=== PATIENT | female | born 1955 | race Caucasian/White ===

== ENCOUNTER 2017-06-02 21:08 | Emergency (ER) | END 2017-06-02 22:08 | disposition left against medical advice (07) ==

== ENCOUNTER 2019-01-02 07:55 | Emergency (ER) | payer OTHER ==
[~2019-01-02] VITALS: Ht 162.6 cm; Wt 80.0 kg
[2019-01-02 07:58] VITALS: Ht 162.6 cm; Wt 80.0 kg
--- NOTE | 2019-01-02 08:38 | ERD ---
ER Documentation Chief Complaint Chief Complaint Just got bad news about a in the family c/o anxiety like symptoms HPI This is a 63-year-old female with a past medical history of hypertension, diabetes, rectal cancer status post resection who is presenting to the emergency department after a reported hysterical episode. The patient got bad news this morning about a tragic unexpected of a family member. She was screaming and inconsolable. She endorsed a moderate aching chest pain. She was hyperventilating and endorsed palpitations. The patient could not be calmed down, and the family was afraid, so they called an ambulance. In route to the hospital, the patient's symptoms started to improve. The patient is still incredibly sad, but she is calm and cooperative currently. She does not endorse any alleviating or exacerbating factors. The patient's blood sugar was checked in route to the hospital and found to be at 160. The patient denies feeling sick recently. The patient denies fever or chills. The patient has had no headache or vision changes. The patient does not endorse neck or back pain. The patient denies lightheadedness or dizziness. The patient has had no chest pain or trouble breathing. The patient denies nausea or vomiting. The patient denies abdominal pain. The patient denies changes to bowel movements or urination. The patient has had no focal deficits. The patient has had no weakness or numbness or tingling to the face or extremities. ROS All systems reviewed and are negative except as per history of present illness. Allergies Allergies: Coded Allergies: No Known Allergy (Unverified , 01/02/19) PMhx/Soc History of Surgery: Yes (Rectal cancer resection) Anesthesia Reaction: No Hx Neurological Disorder: No Hx Respiratory Disorders: No Hx Cardiac Disorders: Yes (Hypertension, diabetes) Hx Psychiatric Problems: No Hx Miscellaneous Medical Probl: No Hx Alcohol Use: No Hx Substance Use: No Hx Tobacco Use: No FmHx Family History: diabetes Physical Exam Vitals Vital Signs Date Temp Pulse Resp B/P (MAP) Pulse Ox O2 O2 Flow FiO2 Time Delivery Rate 01/02/19 97.8 74 18 172/74 98 07:58 (106) Physical Exam Const: No acute distress Head: Atraumatic Eyes: Normal Conjunctiva ENT: Normal External Ears, Nose and Mouth. Neck: Full range of motion. No meningismus. Resp: Clear to auscultation bilaterally Cardio: Regular rate and rhythm, no murmurs Abd: Soft, non tender, non distended. Normal bowel sounds Skin: No petechiae or rashes Back: No midline or flank tenderness Ext: No cyanosis, or edema Neur: Awake and alert Psych: Patient expresses a grief and sadness. Otherwise normal mood and affect given the situation. Procedures/MDM MDM The patient's presentation warrants further investigation. Previous medical records, if available, were reviewed. EKG EKG read by me: Rate/Rhythm: Regular rate and rhythm at a rate of 70 Intervals: Normal [place]: Normal Impression: No evidence of acute ischemia or arrhythmia TREATMENT/DISPOSITION The patient's symptoms are consistent with an anxiety reaction and bereavement. The patient received news of a tragic unexpected this morning, and her symptoms were directly associated with this news. The patient has since calmed down, and her symptoms have improved. The patient's EKG is normal. I do not suspect acute coronary syndrome. I do not suspect an emergent cardiopulmonary process. Given the patient's current demeanor, I do not feel that she requires medical anxiolysis. The patient has family at home for support. I do not feel that a prescription is warranted at this time. The patient did not endorse any suicidal or homicidal ideations. She does not require any further psychiatric work-up. She is not a danger to herself or others. DISCHARGE Upon reevaluation of the patient, symptoms have improved. No emergent diagnoses were identified. At this time, I feel that the patient stable for discharge. The patient was instructed to follow-up with a primary care physician in 1-3 days. The patient will be given strict precautions with which to return to the emergency department. Prescriptions: None The patient's blood pressure was elevated at greater than 120/80 while in the emergency department. The patient was otherwise stable with no evidence of hypertensive urgency or emergency. The patient does not require admission for blood pressure control. I have discussed with the patient the risks of hypertension. I have instructed the patient to return to the ER for any new or worsening symptoms including chest pain, shortness of breath, headache, blurred vision, confusion, nausea, vomiting or LOC. I have advised the patient to follow up with the primary care physician for outpatient monitoring and treatment for hypertension in 1-3 days. DISCLAIMER Inadvertent spelling and grammatical errors are likely due to EHR/dictation software use and do not reflect on the overall quality of patient care. Note that the electronic time recorded on this note does not necessarily reflect the actual time of the patient encounter. Departure Diagnosis: Primary Impression: Expected bereavement due to life event Additional Impression: Anxiety reaction Condition: Stable Patient Instructions: Anxiety Reaction, Grief and Loss Additional Instructions: Thank you for for coming to [facility] for your care today. Please ask your nurse or provider if you have questions about your care today and do not leave until all your questions have been answered. Please use any medications given as directed and follow-up with your doctor (or the doctor you were referred to) in the next 1-3 days. If you do not have a primary care doctor you may follow up at the [facility] or [facility] (listed below). You may also use motrin and tylenol as needed for fever and/or pain unless instructed otherwise by your provider or nurse. Indications for more urgent follow-up have been discussed, but you may return to the Emergency Department at ANY time for any worrisome or worsening symptoms. If you have abdominal pain, please know that no test or exam you received is p erfect and you should follow up within 8 hours for continued pain. If you had any imaging studies today, such as an X-Ray or CT Scan, these studies will be reviewed later by a radiologist. You will be called if there are important findings that were not identified today, so make sure the contact information you provided at registration is correct. If you received any narcotic pain control medicine today, such as Vicodin, Morphine or Dilaudid, your coordination and judgment may be affected for a number of hours. Please do not drive or operate heavy machinery, and you may want someone to assist you at home. If you were given a prescription for narcotic medication, be aware that it is very addictive- use sparingly and only if necessary. PLEASE SEEK FURTHER EVALUATION AND MANAGEMENT AT YOUR DOCTORS OFFICE WITHIN THE NEXT 1-3 DAYS. IT IS YOUR RESPONSIBILITY TO MAKE AN APPOINTMENT FOR FOLOW-UP CARE. IF YOU HAVE A PRIMARY DOCTOR, PLEASE CALL THEIR OFFICE TO SCHEDULE AN APPOINTMENT FOR FOLLOW UP. IF YOU DO NOT HAVE A PRIMARY DOCTOR YOU CAN CALL OUR PHYSICIAN REFERRAL HOTLINE AT IF YOU CAN NOT AFFORD TO SEE A PHYSICIAN YOU CAN CHOSE FROM THE FOLLOWING COMMUNITY OR [facility] CLINICS: [facility] [address] [facility] [address] [facility] [address] [facility] [address] [facility] [address] [facility] [facility] [address] [facility] [id number] [place] [address] [facility] [address] [place] [address] [facility] [address] [place] [address] HAMILTON AHMADI MD Jan 02, 2019 08:38
[2019-01-02 08:47] VITALS: BP 150/67; PULSE 76; RESP 18
== END 2019-01-02 08:47 | disposition home or self-care (01) ==
LOC: FTE 07:55
DX: F41.1 Generalized anxiety disorder (principal); I10 Essential (primary) hypertension; E11.9 Type 2 diabetes mellitus without complications; Z63.4 Disappearance and death of family member; Z85.048 Personal history of other malignant neoplasm of rectum, rectosigmoid junction, and anus
CPT/HCPCS: 93005; 99282